=== PATIENT | male | born 1985 | race Hispanic/Latino ===

== ENCOUNTER 2024-04-01 17:57 | Emergency (ER) | payer SELFPAY ==
[~2024-04-01] VITALS: Ht 172.7 cm; Wt 130.2 kg
[2024-04-01 18:35] VITALS: TEMP 98.8
[2024-04-01 19:05] LABS: BASOPHILS # (AUTO) 0.1 (0.0-0.1); BASOPHILS % 0.6 % (0.0-1.0); EOSINOPHILS # (AUTO) 0.2 (0.0-0.4); EOSINOPHILS % 1.3 % (0.0-6.0); HEMATOCRIT 45.2 % (38.2-49.6); HEMOGLOBIN 14.3 g/dL (14.0-18.0); LYMPHOCYTES # (AUTO) 2.9 (1.0-3.2); LYMPHOCYTES % 22.3 % (18.0-39.1); MEAN CORPUSCULAR HEMOGLOBIN 27.6 pg (28-32); MEAN CORPUSCULAR HGB CONC 31.6 g/dL (31-35); MEAN CORPUSCULAR VOLUME 87.3 fL (81-99); MONOCYTES # (AUTO) 1.7 (0.2-0.8); MONOCYTES % 12.9 % (4.4-11.3); NEUTROPHILS # (AUTO) 8.1 (2.1-6.9); NEUTROPHILS % 62.5 % (38.7-80.0); PLATELET COUNT 318 x10e3/uL (140-360); RED BLOOD COUNT 5.18 x10e6/uL (4.3-5.7); RED CELL DISTRIBUTION WIDTH 13.5 % (11.7-14.4); WHITE BLOOD COUNT 12.89 x10e3/uL (4.8-10.8)
[2024-04-01 19:24] LABS: ALANINE AMINOTRANSFERASE 23 IU/L (0-55); ALBUMIN 2.9 g/dL (3.5-5.0); ALBUMIN/GLOBULIN RATIO 0.5 (0.8-2.0); ALKALINE PHOSPHATASE 103 IU/L (40-150); ANION GAP 16.2 mmol/L (8-16); BILIRUBIN,TOTAL 0.4 mg/dL (0.2-1.2); BLOOD UREA NITROGEN 9 mg/dL (7-26); BUN/CREATININE RATIO 13 (6-25); CALCIUM 9.5 mg/dL (8.4-10.2); CARBON DIOXIDE 23 mmol/L (22-29); CHLORIDE 101 mmol/L (98-107); CREATINE KINASE 34 IU/L (30-200); CREATININE, SERUM 0.72 mg/dL (0.72-1.25); EST GLOMERULAR FILTRATION RATE 118 ML/MIN (>=60); GLUCOSE 114 mg/dL (74-118); POTASSIUM 4.2 mmol/L (3.5-5.1); SODIUM 136 mmol/L (136-145); TOTAL PROTEIN 8.3 g/dL (6.5-8.1)
[2024-04-01 19:34] LABS: INFLUENZAE A&B ANTIGEN (RAPID) NEGATIVE (NEGATIVE); RESPIRATORY SYNC. VIRUS NEGATIVE (NEGATIVE); TROPONIN I < 0.001 ng/mL (0-0.300)
[2024-04-01] MEDS ORDERED: IOPAMIDOL 370 MG/ML 100 ML INFUS..BTL INJ ONE (19:39)
[2024-04-01 20:09] LABS: STREPTOCOCCUS GRP A ANTIGEN NEGATIVE (NEGATIVE)
[2024-04-01 20:39] VITALS: PULSE 94; RESP 22
[2024-04-01] MEDS ORDERED: PREDNISONE20 MG PO (21:31)
[2024-04-01] MEDS ORDERED: VENTOLIN HFA18 GM INH (21:31)
[2024-04-01] MEDS ORDERED: AZITHROMYCIN250 MG PO (21:31)
[2024-04-01 21:53] VITALS: BP 166/97; PULSE 97; RESP 20; O2SAT 94
== END 2024-04-01 21:48 | disposition home or self-care (01) ==
LOC: ER 18:12
DX: R09.02 Hypoxemia (principal); R05.9 Cough, unspecified; R59.9 Enlarged lymph nodes, unspecified; Z11.52 Encounter for screening for COVID-19; R94.31 Abnormal electrocardiogram [ECG] [EKG]
CPT/HCPCS: 36415; 71260; 80053; 82550; 83518; 83690; 83880; 84484; 85025; 87070; 87400; 87420; 93005; 99284; Q9967; U0002

== ENCOUNTER 2024-06-23 19:38 | Inpatient (IN) | payer BC, OTHER ==
[~2024-06-23] VITALS: Ht 172.7 cm; Wt 130.2 kg
[~2024-06-23 19:38] MED LIST: AZITHROMYCIN250 MG PO; PREDNISONE20 MG PO; VENTOLIN HFA18 GM INH
[2024-06-23 19:51] VITALS: TEMP 98.4
[2024-06-23 20:13] LABS: BASOPHILS % 0.1 % (0.0-1.0); EOSINOPHILS % 0.1 % (0.0-6.0); HEMATOCRIT 47.2 % (38.2-49.6); LYMPHOCYTES # (AUTO) 1.3 (1.0-3.2); LYMPHOCYTES % 7.3 % (18.0-39.1); MEAN CORPUSCULAR HEMOGLOBIN 25.5 pg (28-32); MEAN CORPUSCULAR HGB CONC 29.7 g/dL (31-35); MEAN CORPUSCULAR VOLUME 86.1 fL (81-99); MONOCYTES # (AUTO) 1.4 (0.2-0.8); MONOCYTES % 7.7 % (4.4-11.3); NEUTROPHILS # (AUTO) 15.1 (2.1-6.9); NEUTROPHILS % 83.9 % (38.7-80.0); PLATELET COUNT 262 x10e3/uL (140-360); RED BLOOD COUNT 5.48 x10e6/uL (4.3-5.7); RED CELL DISTRIBUTION WIDTH 16.8 % (11.7-14.4)
[2024-06-23] MEDS: METHYLPREDNISOLONE SOD SUCC 125 MG/2ML VIAL IV ONE (20:13)
[2024-06-23 20:20] VITALS: PULSE 111; RESP 30; O2SAT 92
[2024-06-23 20:29] LABS: ALBUMIN 2.1 g/dL (3.5-5.0); ALBUMIN/GLOBULIN RATIO 0.4 (0.8-2.0); ANION GAP 15.1 mmol/L (8-16); BILIRUBIN,TOTAL 0.5 mg/dL (0.2-1.2); CREATININE, SERUM 0.8 mg/dL (0.72-1.25); INFLUENZA A AG NEGATIVE (NEGATIVE); POTASSIUM 4.1 mmol/L (3.5-5.1); TOTAL PROTEIN 6.9 g/dL (6.5-8.1)
[2024-06-23 20:30] LABS: CORONAVIRUS COVID-19 AG NEGATIVE (NEGATIVE); INFLUENZA B AG NEGATIVE (NEGATIVE)
[2024-06-23] MEDS: ALBUTEROL/IPRATROPIUM 3 ML NEB NEB ONE (20:42)
[2024-06-23] MEDS ORDERED: IOPAMIDOL 370 MG/ML 100 ML INFUS..BTL INJ ONE (20:51)
[2024-06-23] MEDS ORDERED: SODIUM CHLORIDE FLUSH 10 ML SYR INJ PRN (22:15)
[2024-06-23] MEDS ORDERED: ACETAMINOPHEN 325 MG TAB PO PRN (22:15)
[2024-06-23] MEDS ORDERED: DEXTROSE 50% SYRINGE 50 ML IV PRN (22:15)
[2024-06-23 22:24] VITALS: PULSE 101; RESP 22
[2024-06-23 23:00] LABS: ABG HCO3 26 mmol/L (22-26); ABG PCO2 40 mmHg (35-45); ABG PH 7.41 (7.35-7.45); ABG PO2 86 mmHg (80-105); ABG TCO2 27
[2024-06-23 23:07] VITALS: BP 139/90; PULSE 85; RESP 16; TEMP 98; O2SAT 98
[2024-06-23 23:15] VITALS: BP 139/90; PULSE 85; RESP 16; TEMP 98; O2SAT 98
[2024-06-23 23:52] VITALS: PULSE 96; RESP 24; O2SAT 96
[2024-06-23] MEDS: ALBUTEROL/IPRATROPIUM 3 ML NEB NEB SCH (23:54)
[2024-06-24] VITALS (27 sets, daily range): BP systolic 116–165; BP diastolic 70–97; PULSE 57–105; RESP 15–28; TEMP 97.7–98.6; O2SAT 92–98
[2024-06-24 06:46] LABS: BASOPHILS % 0.2 % (0.0-1.0); HEMATOCRIT 42.1 % (38.2-49.6); HEMOGLOBIN 13.1 g/dL (14.0-18.0); LYMPHOCYTES # (AUTO) 0.9 (1.0-3.2); LYMPHOCYTES % 6.9 % (18.0-39.1); MEAN CORPUSCULAR HEMOGLOBIN 25.7 pg (28-32); MEAN CORPUSCULAR HGB CONC 31.1 g/dL (31-35); MEAN CORPUSCULAR VOLUME 82.7 fL (81-99); MONOCYTES # (AUTO) 0.5 (0.2-0.8); NEUTROPHILS # (AUTO) 11.3 (2.1-6.9); NEUTROPHILS % 87.9 % (38.7-80.0); PLATELET COUNT 162 x10e3/uL (140-360); RED BLOOD COUNT 5.09 x10e6/uL (4.3-5.7); WHITE BLOOD COUNT 12.88 x10e3/uL (4.8-10.8)
[2024-06-24 07:09] LABS: ALBUMIN 1.9 g/dL (3.5-5.0); ALBUMIN/GLOBULIN RATIO 0.4 (0.8-2.0); BILIRUBIN,TOTAL 0.3 mg/dL (0.2-1.2); CALCIUM 8.9 mg/dL (8.4-10.2); CREATININE, SERUM 0.66 mg/dL (0.72-1.25); TOTAL PROTEIN 6.2 g/dL (6.5-8.1)
[2024-06-24 07:33] LABS: TROPONIN I 0.012 ng/mL (0-0.300)
[2024-06-24] MEDS: INSULIN REGULAR, HUMAN 100 UNIT/1 ML SQ SCH (08:31)
[2024-06-24] MEDS: GUAIFENESIN 600MG/DEXTROMETHORPHAN 30MG TABSR PO SCH (09:01)
[2024-06-24] MEDS ORDERED: HYDRALAZINE HCL 20 MG/ML VIAL IV PRN (12:00)
[2024-06-24] MEDS ORDERED: ONDANSETRON HCL INJ 2MG/ML 2ML 2 MG/ML VIAL IV PRN (12:00)
[2024-06-24 13:09] LABS: INR 1.1; PROTHROMBIN TIME 14.9 seconds (11.9-14.5)
[2024-06-24 13:23] LABS: TROPONIN I 0.006 ng/mL (0-0.300)
[2024-06-24 13:30] LABS: CHOL/HDL RATIO 3.4 (3.9-4.7)
[2024-06-24 13:36] LABS: ALBUMIN 2.1 g/dL (3.5-5.0); BILIRUBIN,DIRECT 0.2 mg/dL (0.0-0.5); BILIRUBIN,TOTAL 0.4 mg/dL (0.2-1.2); TOTAL PROTEIN 6.8 g/dL (6.5-8.1)
[2024-06-24 14:38] LABS: BILIRUBIN,URINE NEGATIVE (NEGATIVE); CLARITY,URINE SL CLOUDY (CLEAR); COLOR,URINE YELLOW (YELLOW); GLUCOSE, URINE 500 (NEGATIVE); KETONES,URINE NEGATIVE (NEGATIVE); LEUKOCYTE ESTERASE ,URINE NEGATIVE (NEGATIVE); NITRITE,URINE NEGATIVE (NEGATIVE); PH,URINE 6 (5 - 7); PROTEIN,URINE DIPSTICK NEGATIVE (NEGATIVE); URINE UROBILINOGEN 0.2 mg/dL (0.2 - 1)
[2024-06-24] MEDS: FUROSEMIDE INJ 10 MG/ML 4 ML VIAL IV ONE (15:21)
[2024-06-24] MEDS: INSULIN REGULAR, HUMAN 100 UNIT/1 ML SQ ONE (16:50)
[2024-06-24 18:50] LABS: HEPATITIS A ANTIBODY IGM (P) Non Reactive; HEPATITIS B CORE IGM (P) Non Reactive; HEPATITIS B SURFACE AG (P) Non Reactive
[2024-06-24 18:53] LABS: HEPATITIS C ANTIBODY Non Reactive
[2024-06-24] MEDS: INSULIN GLARGINE 100 UNITS/ML VIAL SQ SCH (20:37)
[2024-06-24] MEDS: HEPARIN SOD (PORCINE) 5,000 UNIT/ML VIAL SC SCH (20:37)
[2024-06-25] VITALS (20 sets, daily range): BP systolic 121–160; BP diastolic 70–124; PULSE 66–134; RESP 14–42; TEMP 97.8–98.6; O2SAT 90–96
[2024-06-25] MEDS: IBUPROFEN 600 MG TAB PO PRN (05:41)
[2024-06-25 06:41] LABS: BASOPHILS % 0.1 % (0.0-1.0); EOSINOPHILS % 0.1 % (0.0-6.0); HEMATOCRIT 41.7 % (38.2-49.6); LYMPHOCYTES % 11.3 % (18.0-39.1); MEAN CORPUSCULAR HEMOGLOBIN 25.8 pg (28-32); MEAN CORPUSCULAR HGB CONC 31.2 g/dL (31-35); MEAN CORPUSCULAR VOLUME 82.7 fL (81-99); MONOCYTES % 11.3 % (4.4-11.3); NEUTROPHILS # (AUTO) 13.8 (2.1-6.9); NEUTROPHILS % 76.3 % (38.7-80.0); PLATELET COUNT 182 x10e3/uL (140-360); RED BLOOD COUNT 5.04 x10e6/uL (4.3-5.7); RED CELL DISTRIBUTION WIDTH 16.2 % (11.7-14.4); WHITE BLOOD COUNT 18.03 x10e3/uL (4.8-10.8)
[2024-06-25 06:57] LABS: INR 1.06; PARTIAL THROMBOPLASTIN TIME 20.9 seconds (23.8-35.5); PROTHROMBIN TIME 14.4 seconds (11.9-14.5)
[2024-06-25 07:11] LABS: ALBUMIN/GLOBULIN RATIO 0.5 (0.8-2.0); ANION GAP 13.8 mmol/L (8-16); BILIRUBIN,TOTAL 0.5 mg/dL (0.2-1.2); CALCIUM 9.2 mg/dL (8.4-10.2); CREATININE, SERUM 0.61 mg/dL (0.72-1.25); POTASSIUM 3.8 mmol/L (3.5-5.1); TOTAL PROTEIN 6.1 g/dL (6.5-8.1)
[2024-06-25] MEDS ORDERED: PREDNISONE 20 MG TAB PO SCH (09:00)
[2024-06-25 11:02] LABS: HIV 1&2 AB SCREEN NON-REACTIVE (NONREACTIVE); HIV- 1 P24 AG SCREEN NON-REACTIVE (NONREACTIVE)
[2024-06-25] MEDS: MUPIROCIN 2% OINT 22 GM TUBE TOP SCH (11:02)
[2024-06-25] MEDS: BENZONATATE 100 MG CAP PO PRN (20:39)
[2024-06-25] MEDS: LORAZEPAM INJ 2 MG/ML VIAL IV ONE (22:32)
[2024-06-26] VITALS (29 sets, daily range): BP systolic 82–186; BP diastolic 55–113; PULSE 74–147; RESP 18–44; TEMP 97.9–100.6; O2SAT 89–98
[2024-06-26 06:55] LABS: BASOPHILS % 0.2 % (0.0-1.0); EOSINOPHILS % 0.2 % (0.0-6.0); HEMATOCRIT 42.4 % (38.2-49.6); HEMOGLOBIN 12.4 g/dL (14.0-18.0); LYMPHOCYTES # (AUTO) 2.4 (1.0-3.2); LYMPHOCYTES % 14.9 % (18.0-39.1); MEAN CORPUSCULAR HEMOGLOBIN 25.7 pg (28-32); MEAN CORPUSCULAR HGB CONC 29.2 g/dL (31-35); MEAN CORPUSCULAR VOLUME 87.8 fL (81-99); MONOCYTES % 12.4 % (4.4-11.3); NEUTROPHILS # (AUTO) 11.4 (2.1-6.9); NEUTROPHILS % 70.9 % (38.7-80.0); PLATELET COUNT 169 x10e3/uL (140-360); RED BLOOD COUNT 4.83 x10e6/uL (4.3-5.7); RED CELL DISTRIBUTION WIDTH 16.6 % (11.7-14.4); WHITE BLOOD COUNT 16.02 x10e3/uL (4.8-10.8)
[2024-06-26 07:32] LABS: ANION GAP 12.8 mmol/L (8-16); CREATININE, SERUM 0.59 mg/dL (0.72-1.25); POTASSIUM 3.8 mmol/L (3.5-5.1)
[2024-06-26] MEDS: SPIRONOLACTONE 25 MG TAB PO SCH (08:14)
[2024-06-26] MEDS: FUROSEMIDE 40 MG TAB PO SCH (08:15)
[2024-06-26] MEDS ORDERED: EPINEPHRINE HCL SYRINGE ONE (10:11)
[2024-06-26] MEDS ORDERED: SUCCINYLCHOLINE CHLORIDE 20 MG/ML 10ML VIAL ONE (11:12)
[2024-06-26] MEDS ORDERED: LIDOCAINE HCL 2% LOCAL INJ 5 ML SDV VIAL INJ ONE (11:12)
[2024-06-26] MEDS ORDERED: ROCURONIUM BROMIDE 1 ML IV ONE (11:12)
[2024-06-26] MEDS ORDERED: MIDAZOLAM HCL 2 MG/2 ML VIAL ONE (11:13)
[2024-06-26] MEDS ORDERED: SEVOFLURANE INHAL SOLN 250 ML PEN BTL ONE (11:13)
[2024-06-26] MEDS ORDERED: FENTANYL CITRATE/PF 100MCG/2 ML INJ ONE (11:13)
[2024-06-26] MEDS ORDERED: PROPOFOL IV EMULSION 10 MG/ML 20 ML VIAL ONE ×2 (11:13→13:32)
[2024-06-26] MEDS: METHYLPREDNISOLONE SOD SUCC 40 MG/ML VIAL 1ML IV ONE (11:28)
[2024-06-26] MEDS ORDERED: SODIUM CHLORIDE 0.9% INJ 10 ML VIAL ONE (11:38)
[2024-06-26] MEDS ORDERED: ACETAMINOPHEN 1000 MG/100 ML 0 ML IV ONE (12:13)
[2024-06-26] MEDS ORDERED: EPINEPHRINE HCL 1:1000 1ML 1 MG/ML AMP ONE ×2 (13:03→15:47)
[2024-06-26] MEDS ORDERED: ATROPINE SULFATE 1 MG/ML VIAL ONE (13:13)
[2024-06-26] MEDS ORDERED: ALBUTEROL 90 MCG/ACT INHALER INH ONE (13:20)
[2024-06-26 14:49] LABS: ABG HCO3 31 mmol/L (22-26); ABG PCO2 51 mmHg (35-45); ABG PH 7.39 (7.35-7.45); ABG PO2 319 mmHg (80-105); ABG TCO2 33
[2024-06-26 15:09] LABS: ABG PH 7.14 (7.35-7.45)
[2024-06-26 15:10] LABS: ABG HCO3 32 mmol/L (22-26); ABG PCO2 95 mmHg (35-45); ABG PO2 83 mmHg (80-105); ABG TCO2 35
[2024-06-26 15:33] LABS: BETA-2-MICROGLOBULIN 1.4 mg/L (0.6-2.4)
[2024-06-26] MEDS: SODIUM CHLORIDE 0.9% 1000ML 1,000 ML IV SCH (15:46)
[2024-06-26] MEDS: SODIUM CHLORIDE 0.9% 250ML IRRIG IR SCH (16:54)
[2024-06-26] MEDS: ENOXAPARIN SOD INJ 40 MG/0.4 ML SYR SC SCH (16:54)
[2024-06-26] MEDS: DEXMEDETOMIDINE 400MCG/NS100ML 100 ML IV PRN (21:10)
[2024-06-26] MEDS ORDERED: ACETAMINOPHEN 325 MG/10 ML UDC NG PRN (21:45)
[2024-06-26] MEDS: Doxycycline IV 100 MG in SODIUM CHLORIDE 0.9% 100 ML IV SCH (22:01)
[2024-06-26] MEDS: ACETAMINOPHEN 325 MG/10 ML UDC NG PRN (22:02)
[2024-06-27] VITALS (54 sets, daily range): BP systolic 83–204; BP diastolic 44–117; PULSE 55–114; RESP 16–31; TEMP 98.4–101; O2SAT 94–100
[2024-06-27 06:27] LABS: BASOPHILS % 0.1 % (0.0-1.0); EOSINOPHILS % 0.1 % (0.0-6.0); HEMATOCRIT 38.7 % (38.2-49.6); HEMOGLOBIN 11.7 g/dL (14.0-18.0); LYMPHOCYTES # (AUTO) 2.2 (1.0-3.2); MEAN CORPUSCULAR HEMOGLOBIN 25.5 pg (28-32); MEAN CORPUSCULAR HGB CONC 30.2 g/dL (31-35); MEAN CORPUSCULAR VOLUME 84.5 fL (81-99); MONOCYTES # (AUTO) 1.6 (0.2-0.8); MONOCYTES % 9.3 % (4.4-11.3); NEUTROPHILS % 76.7 % (38.7-80.0); PLATELET COUNT 171 x10e3/uL (140-360); RED BLOOD COUNT 4.58 x10e6/uL (4.3-5.7); RED CELL DISTRIBUTION WIDTH 16.5 % (11.7-14.4); WHITE BLOOD COUNT 16.89 x10e3/uL (4.8-10.8)
[2024-06-27 06:41] LABS: ALBUMIN 1.7 g/dL (3.5-5.0); ALBUMIN/GLOBULIN RATIO 0.4 (0.8-2.0); ANION GAP 14.8 mmol/L (8-16); BILIRUBIN,TOTAL 0.9 mg/dL (0.2-1.2); CALCIUM 8.5 mg/dL (8.4-10.2); CREATININE, SERUM 0.78 mg/dL (0.72-1.25); POTASSIUM 3.8 mmol/L (3.5-5.1); TOTAL PROTEIN 5.5 g/dL (6.5-8.1)
[2024-06-27 07:21] LABS: ALPHA-1-ANTITRYPSIN 255 mg/dL (95-164)
[2024-06-27] MEDS: METHYLPREDNISOLONE SOD SUCC 40 MG/ML VIAL 1ML IV SCH (07:27)
[2024-06-27 08:29] LABS: ABG HCO3 31 mmol/L (22-26); ABG PCO2 51 mmHg (35-45); ABG PH 7.39 (7.35-7.45); ABG PO2 319 mmHg (80-105); ABG TCO2 33
[2024-06-27] MEDS: ARTIFICIAL TEARS (OPTH) 15 ML BTL OU SCH (11:42)
[2024-06-27 12:54] LABS: ABG HCO3 31 mmol/L (22-26); ABG PCO2 33 mmHg (35-45); ABG PH 7.57 (7.35-7.45); ABG PO2 145 mmHg (80-105); ABG TCO2 32
[2024-06-27 12:56] LABS: ABG HCO3 31 mmol/L (22-26); ABG PCO2 38 mmHg (35-45); ABG PH 7.52 (7.35-7.45); ABG PO2 147 mmHg (80-105); ABG TCO2 32
[2024-06-27] MEDS ORDERED: PROPOFOL IV EMULSION 10MG/ML 100 ML IV PRN (15:00)
[2024-06-27 17:21] LABS: ANTI-MITOCHONDRIAL AB SCREEN <20.0 Units (0.0-20.0)
[2024-06-27] MEDS ORDERED: LEVETIRACETAM 1500 MG/100 ML IV ONE (18:15)
[2024-06-27] MEDS: LEVETIRACETAM 500MG/5ML VIAL 2,000 MG in SODIUM CHLORIDE 0.9% 150 ML IV ONE (19:04)
[2024-06-28] VITALS (34 sets, daily range): BP systolic 85–204; BP diastolic 49–113; PULSE 46–112; RESP 17–23; TEMP 97.9–98.6; O2SAT 96–100
[2024-06-28 06:03] LABS: ABG HCO3 26 mmol/L (22-26); ABG PCO2 40 mmHg (35-45); ABG PH 7.41 (7.35-7.45); ABG PO2 86 mmHg (80-105); ABG TCO2 27
[2024-06-28 06:46] LABS: BASOPHILS % 0.1 % (0.0-1.0); HEMATOCRIT 35.8 % (38.2-49.6); HEMOGLOBIN 11.4 g/dL (14.0-18.0); LYMPHOCYTES # (AUTO) 1.8 (1.0-3.2); LYMPHOCYTES % 12.4 % (18.0-39.1); MEAN CORPUSCULAR HEMOGLOBIN 26.1 pg (28-32); MEAN CORPUSCULAR HGB CONC 31.8 g/dL (31-35); MEAN CORPUSCULAR VOLUME 82.1 fL (81-99); MONOCYTES # (AUTO) 1.7 (0.2-0.8); NEUTROPHILS # (AUTO) 10.8 (2.1-6.9); NEUTROPHILS % 74.5 % (38.7-80.0); PLATELET COUNT 173 x10e3/uL (140-360); RED BLOOD COUNT 4.36 x10e6/uL (4.3-5.7); RED CELL DISTRIBUTION WIDTH 16.8 % (11.7-14.4); WHITE BLOOD COUNT 14.51 x10e3/uL (4.8-10.8)
[2024-06-28 07:29] LABS: ALBUMIN 1.7 g/dL (3.5-5.0); ALBUMIN/GLOBULIN RATIO 0.5 (0.8-2.0); ANION GAP 12.5 mmol/L (8-16); BILIRUBIN,TOTAL 0.7 mg/dL (0.2-1.2); CALCIUM 8.6 mg/dL (8.4-10.2); CREATININE, SERUM 0.72 mg/dL (0.72-1.25); POTASSIUM 3.5 mmol/L (3.5-5.1); TOTAL PROTEIN 5.4 g/dL (6.5-8.1)
[2024-06-28] MEDS ORDERED: GADOBENATE DIMEGLUMINE 1 ML IV ONE (08:09)
[2024-06-28] MEDS: LEVETIRACETAM 1500 MG/100 ML 100 ML IV SCH (08:33)
[2024-06-28 11:14] LABS: ABG HCO3 27 mmol/L (22-26); ABG PCO2 38 mmHg (35-45); ABG PH 7.46 (7.35-7.45); ABG PO2 122 mmHg (80-105); ABG TCO2 28
[2024-06-28] MEDS: INSULIN REGULAR, HUMAN 100 UNIT/1 ML SQ SCH (12:25)
[2024-06-28] MEDS ORDERED: IOPAMIDOL 370 MG/ML 100 ML INFUS..BTL INJ ONE (13:15)
[2024-06-29] VITALS (31 sets, daily range): BP systolic 110–178; BP diastolic 56–108; PULSE 74–114; RESP 18–22; TEMP 97.4–98.7; O2SAT 99–100
[2024-06-29 06:48] LABS: BASOPHILS % 0.1 % (0.0-1.0); EOSINOPHILS % 0.2 % (0.0-6.0); HEMOGLOBIN 9.3 g/dL (14.0-18.0); LYMPHOCYTES # (AUTO) 1.2 (1.0-3.2); LYMPHOCYTES % 9.9 % (18.0-39.1); MEAN CORPUSCULAR HEMOGLOBIN 25.6 pg (28-32); MEAN CORPUSCULAR HGB CONC 29.1 g/dL (31-35); MEAN CORPUSCULAR VOLUME 88.2 fL (81-99); MONOCYTES # (AUTO) 1.4 (0.2-0.8); MONOCYTES % 11.3 % (4.4-11.3); NEUTROPHILS # (AUTO) 9.8 (2.1-6.9); NEUTROPHILS % 77.8 % (38.7-80.0); PLATELET COUNT 135 x10e3/uL (140-360); RED BLOOD COUNT 3.63 x10e6/uL (4.3-5.7); RED CELL DISTRIBUTION WIDTH 16.4 % (11.7-14.4); WHITE BLOOD COUNT 12.52 x10e3/uL (4.8-10.8)
[2024-06-29 09:34] LABS: ANION GAP 12.8 mmol/L (8-16); CALCIUM 8.6 mg/dL (8.4-10.2); CREATININE, SERUM 0.66 mg/dL (0.72-1.25); POTASSIUM 3.8 mmol/L (3.5-5.1)
[2024-06-29] MEDS ORDERED: LACTATED RINGER'S 500 ML IV SCH (10:15)
[2024-06-29 11:12] LABS: ABG HCO3 26 mmol/L (22-26); ABG PCO2 39 mmHg (35-45); ABG PH 7.43 (7.35-7.45); ABG PO2 102 mmHg (80-105); ABG TCO2 27
[2024-06-29] MEDS: LACTATED RINGER'S 1,000 ML IV SCH (12:29)
[2024-06-30] VITALS (23 sets, daily range): BP systolic 101–146; BP diastolic 51–87; PULSE 64–80; RESP 18–24; TEMP 99–101.3; O2SAT 95–100
[2024-06-30 07:06] LABS: BASOPHILS % 0.1 % (0.0-1.0); HEMATOCRIT 38.4 % (38.2-49.6); HEMOGLOBIN 11.4 g/dL (14.0-18.0); LYMPHOCYTES # (AUTO) 1.8 (1.0-3.2); MEAN CORPUSCULAR HEMOGLOBIN 25.5 pg (28-32); MEAN CORPUSCULAR HGB CONC 29.7 g/dL (31-35); MEAN CORPUSCULAR VOLUME 85.9 fL (81-99); MONOCYTES # (AUTO) 1.4 (0.2-0.8); MONOCYTES % 12.2 % (4.4-11.3); NEUTROPHILS # (AUTO) 8.6 (2.1-6.9); NEUTROPHILS % 72.1 % (38.7-80.0); PLATELET COUNT 145 x10e3/uL (140-360); RED BLOOD COUNT 4.47 x10e6/uL (4.3-5.7); RED CELL DISTRIBUTION WIDTH 16.4 % (11.7-14.4); WHITE BLOOD COUNT 11.85 x10e3/uL (4.8-10.8)
[2024-06-30 07:34] LABS: CALCIUM 8.4 mg/dL (8.4-10.2); CREATININE, SERUM 0.7 mg/dL (0.72-1.25)
[2024-06-30] MEDS: METHYLPREDNISOLONE SOD SUCC 40 MG/ML VIAL 1ML IV SCH (08:39)
[2024-06-30] MEDS: ENOXAPARIN SOD INJ 40 MG/0.4 ML SYR SC SCH (09:50)
[2024-06-30 10:46] LABS: ABG HCO3 31 mmol/L (22-26); ABG PCO2 38 mmHg (35-45); ABG PH 7.52 (7.35-7.45); ABG PO2 147 mmHg (80-105); ABG TCO2 32
[2024-06-30 10:46] LABS: ABG HCO3 31 mmol/L (22-26); ABG PCO2 33 mmHg (35-45); ABG PH 7.57 (7.35-7.45); ABG PO2 145 mmHg (80-105); ABG TCO2 32
[2024-06-30 10:46] LABS: ABG HCO3 27 mmol/L (22-26); ABG PCO2 38 mmHg (35-45); ABG PH 7.46 (7.35-7.45); ABG PO2 122 mmHg (80-105); ABG TCO2 28
[2024-06-30 10:46] LABS: ABG HCO3 26 mmol/L (22-26); ABG PCO2 39 mmHg (35-45); ABG PH 7.43 (7.35-7.45); ABG PO2 102 mmHg (80-105); ABG TCO2 27
[2024-06-30] MEDS: MAGNESIUM HYDROXIDE 30 ML UDC PO PRN (14:27)
[2024-06-30] MEDS: LEVETIRACETAM 1500 MG/100 ML 100 ML IV SCH (20:03)
[2024-06-30] MEDS ORDERED: LEVETIRACETAM 1000MG/100ML IV 100 ML IV SCH (21:00)
[2024-06-30] MEDS: INSULIN GLARGINE 100 UNITS/ML VIAL SQ SCH (23:59)
[2024-07-01] VITALS (66 sets, daily range): BP systolic 104–162; BP diastolic 49–87; PULSE 65–127; RESP 17–29; TEMP 98–100.1; O2SAT 92–100
[2024-07-01 06:20] LABS: BASOPHILS % 0.1 % (0.0-1.0); EOSINOPHILS % 0.1 % (0.0-6.0); HEMATOCRIT 40.2 % (38.2-49.6); LYMPHOCYTES # (AUTO) 1.8 (1.0-3.2); LYMPHOCYTES % 13.1 % (18.0-39.1); MEAN CORPUSCULAR HEMOGLOBIN 25.8 pg (28-32); MEAN CORPUSCULAR HGB CONC 29.9 g/dL (31-35); MEAN CORPUSCULAR VOLUME 86.5 fL (81-99); MONOCYTES # (AUTO) 1.5 (0.2-0.8); MONOCYTES % 10.5 % (4.4-11.3); NEUTROPHILS # (AUTO) 10.4 (2.1-6.9); NEUTROPHILS % 75.3 % (38.7-80.0); PLATELET COUNT 135 x10e3/uL (140-360); RED BLOOD COUNT 4.65 x10e6/uL (4.3-5.7); RED CELL DISTRIBUTION WIDTH 16.1 % (11.7-14.4); WHITE BLOOD COUNT 13.77 x10e3/uL (4.8-10.8)
[2024-07-01 07:11] LABS: ANION GAP 13.1 mmol/L (8-16); CALCIUM 8.6 mg/dL (8.4-10.2); CREATININE, SERUM 0.59 mg/dL (0.72-1.25); POTASSIUM 4.1 mmol/L (3.5-5.1)
[2024-07-01] MEDS: METHYLPREDNISOLONE SOD SUCC 40 MG/ML VIAL 1ML IV SCH (07:38)
[2024-07-01] MEDS: Morphine 4mg INJECTION 4 MG/ML INJ IV PRN (14:13)
[2024-07-01] MEDS: METOPROLOL TARTRATE 25 MG TAB PO ONE (16:17)
[2024-07-01 20:08] LABS: CHLAMYDIA TRACHOMATIS IGM <0.8 index (0.0-0.7); CHLAMYDOPHILA PSITTACI IGM <1:10 (Neg:<1:10); LEGIONELLA ANTGEN (U) Negative (Negative)
[2024-07-01] MEDS: INSULIN GLARGINE 100 UNITS/ML VIAL SQ SCH (21:09)
[2024-07-02] VITALS (13 sets, daily range): BP systolic 110–134; BP diastolic 63–81; PULSE 22–130; RESP 18–28; TEMP 99–100.8; O2SAT 92–98
[2024-07-02 07:32] LABS: ANION GAP 14.1 mmol/L (8-16); CALCIUM 8.6 mg/dL (8.4-10.2); CREATININE, SERUM 0.59 mg/dL (0.72-1.25); POTASSIUM 4.1 mmol/L (3.5-5.1)
[2024-07-02 08:19] LABS: MYCOPLASMA PNEUMO IGG 137 U/mL (0-99); MYCOPLASMA PNEUMO IGM <770 U/mL (0-769)
== END 2024-07-02 17:43 | disposition hospice, inpatient (51) | DRG 207 ==
LOC: ER 19:44 → ERHOLD 22:11 → ICU 23:16
PROVIDERS: ADMIT Internal Medicine; ATTEND Internal Medicine
PROC: 02HV33Z Insertion of Infusion Device into Superior Vena Cava, Percutaneous Approach (ICD-10-PCS; 2024-06-25)
PROC: 0BH17EZ Insertion of Endotracheal Airway into Trachea, Via Natural or Artificial Opening (ICD-10-PCS; 2024-06-26)
PROC: 5A2204Z Restoration of Cardiac Rhythm, Single (ICD-10-PCS; 2024-06-26)
PROC: 0T9B70Z Drainage of Bladder with Drainage Device, Via Natural or Artificial Opening (ICD-10-PCS; 2024-06-26)
PROC: 5A1955Z Respiratory Ventilation, Greater than 96 Consecutive Hours (ICD-10-PCS; principal; 2024-06-26 12:35)
PROC: 4A133R1 Monitoring of Arterial Saturation, Peripheral, Percutaneous Approach (ICD-10-PCS; 2024-06-27)
DX: J84.10 Pulmonary fibrosis, unspecified (principal); I46.8 Cardiac arrest due to other underlying condition; J96.01 Acute respiratory failure with hypoxia; J96.02 Acute respiratory failure with hypercapnia; G93.49 Other encephalopathy; G93.1 Anoxic brain damage, not elsewhere classified; E87.20 Acidosis, unspecified; D68.9 Coagulation defect, unspecified; J81.1 Chronic pulmonary edema; R18.8 Other ascites; Z68.41 Body mass index [BMI] 40.0-44.9, adult; K75.81 Nonalcoholic steatohepatitis (NASH); K74.69 Other cirrhosis of liver; E66.01 Morbid (severe) obesity due to excess calories; Z51.5 Encounter for palliative care; E11.65 Type 2 diabetes mellitus with hyperglycemia; R63.4 Abnormal weight loss; Z11.52 Encounter for screening for COVID-19; R59.1 Generalized enlarged lymph nodes; Z53.8 Procedure and treatment not carried out for other reasons; Z79.52 Long term (current) use of systemic steroids; Z83.3 Family history of diabetes mellitus
CPT/HCPCS: 36415; 36569; 36600; 70553; 71045; 71260; 74177; 76705; 80048; 80053; 80061; 80076; 81001; 82103; 82140; 82164; 82232; 82390; 82550; 82607; 82805; 82948; 83036; 83605; 83735; 83880; 84443; 84484; 85025; 85379; 85610; 85730; 86039; 86255; 86631; 86738; 86850; 86900; 87040; 87070; 87116; 87205; 87206; 87390; 87449; 92950; 93005; 93306; 94002; 94003; 94640; 94799; 95822; 96372; 99252; 99284; G0433; G0435; J0171; J0330; J0461; J0696; J1644; J1650; J1815; J1940; J2003; J2060; J2250; J2270; J2470; J2543; J2919; J3411; J7030; J7050; J7120; Q9967

== ENCOUNTER 2024-07-02 18:03 | Inpatient (IN) | payer BC, OTHER ==
[2024-07-02] MEDS ORDERED: ONDANSETRON HCL INJ 2MG/ML 2ML 2 MG/ML VIAL IV PRN (18:15)
[2024-07-02] MEDS: SCOPOLAMINE 1 MG PATCH TOP SCH (18:15)
[2024-07-02] MEDS ORDERED: ATROPINE SULFATE 1% OPTH DROPS 15 ML BTL SL PRN (18:15)
[2024-07-02] MEDS ORDERED: BISACODYL 10 MG SUPP PR PRN (18:15)
[2024-07-02] MEDS ORDERED: ACETAMINOPHEN 650 MG SUPP PR PRN (18:15)
[2024-07-02] MEDS: LORAZEPAM INJ 2 MG/ML VIAL IV SCH (18:22)
[2024-07-02] MEDS: Morphine 4mg INJECTION 4 MG/ML INJ IV SCH (18:22)
[2024-07-02 19:26] VITALS: RESP 35
[2024-07-02] MEDS: Morphine 4mg INJECTION 4 MG/ML INJ IV PRN (19:59)
[2024-07-02] MEDS: LORAZEPAM INJ 2 MG/ML VIAL IV PRN (19:59)
[2024-07-02 21:05] VITALS: PULSE 113; TEMP 98.6; O2SAT 80
[2024-07-02 23:10] VITALS: PULSE 116; TEMP 98.2; O2SAT 78
[2024-07-03 01:00] VITALS: PULSE 133; TEMP 98.6; O2SAT 56
[2024-07-03 02:33] VITALS: PULSE 144; TEMP 98.7; O2SAT 34
[2024-07-03 03:07] VITALS: PULSE 144
[2024-07-03 03:54] VITALS: PULSE 146; O2SAT 24
[2024-07-03 04:56] VITALS: PULSE 155
== END 2024-07-03 17:00 | disposition expired | DRG 951 ==
LOC: ICU 18:03 → IMCU 19:00
PROVIDERS: ADMIT Internal Medicine; ATTEND Internal Medicine
DX: Z51.5 Encounter for palliative care (principal)
CPT/HCPCS: J2060; J2270